=== PATIENT | male | born 1980 | race Caucasian/White ===

== ENCOUNTER 2022-03-29 13:47 | Emergency (ER) | payer MEDICAID ==
[~2022-03-29] VITALS: Ht 157.5 cm; Wt 77.6 kg
[2022-03-29 13:53] VITALS: BP 145/94
--- NOTE | 2022-03-29 14:02 | NUR ---
Patient ambulated with steady gait to bed 3.
[2022-03-29] MEDS ORDERED: GENTAMICIN 120 MG in DEXTROSE 5% 100 ML IV ONE (14:45)
[2022-03-29] MEDS ORDERED: ONDANSETRON 4 MG/2 ML VIAL IVP ONE (14:45)
[2022-03-29] MEDS ORDERED: MORPHINE SULFATE 4 MG/ML SYR IVP ONE (14:45)
--- NOTE | 2022-03-29 15:02 | NUR ---
CALLED [place] [employer], SPOKE TO JUAN FRANCISCO OF THE POLICE STATION, STATED THAT THE REPORT/CASE NUMBER WILL BE DONE WHEN THE POLICE SPEAK TO THE PT, CALL BACK NUMBER [phone].
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
[2022-03-29 15:07] LABS: BASOPHILS # (AUTO) 0.1 K/uL (0.00-0.22); BASOPHILS % (AUTO) 1.1 % (0.0-2.0); EOSINOPHILS # (AUTO) 0.2 K/uL (0-0.4); EOSINOPHILS % (AUTO) 3.1 % (0.0-4.0); HEMATOCRIT 46.1 % (36-52); HEMOGLOBIN 15.6 g/dL (12.0-18.0); LYMPHOCYTES % (AUTO) 15.7 % (20.5-51.1); MEAN CORPUSCULAR HEMOGLOBIN 30 pg (27-31); MEAN CORPUSCULAR HGB CONC 34 g/dL (33-37); MEAN CORPUSCULAR VOLUME 87.7 fL (80-94); MONOCYTES # (AUTO) 0.4 K/uL (0.8-1.0); MONOCYTES % (AUTO) 6.8 % (1.7-9.3); NEUTROPHILS # (AUTO) 4.5 K/uL (1.8-7.7); NEUTROPHILS % (AUTO) 73.3 % (42.2-75.2); PLATELET COUNT (AUTO) 203 K/uL (140-450); RED BLOOD CELL COUNT(AUTO) 5.26 MIL/uL (4.20-6.10); RED CELL DISTRIBUTION WIDTH 13.5 % (11.6-13.7); WHITE BLOOD COUNT (AUTO) 6.2 K/uL (4.8-10.8)
[2022-03-29 15:41] LABS: ALBUMIN 4.4 g/dL (3.4-5.0); CARBON DIOXIDE 24.9 mmol/L (21-32); CREATININE 1.1 mg/dL (0.6-1.3); POTASSIUM 3.9 mmol/L (3.5-5.1); TOTAL BILIRUBIN 0.7 mg/dL (0.0-1.0)
--- NOTE | 2022-03-29 15:49 | NUR ---
[place] [employer] AT BEDSIDE
--- NOTE | 2022-03-29 16:14 | NUR ---
CASE #[id number]. OFFICER GARY LYLE GAVE CARD WITH CASE # TO PT.
[2022-03-29] MEDS ORDERED: OXYC5TAB4 PO (16:32)
[2022-03-29] MEDS ORDERED: IBUP-2213 PO (16:32)
[2022-03-29] MEDS ORDERED: CLIN300C52 PO (16:34)
[2022-03-29] MEDS ORDERED: GENTAMICIN 80 MG/2 ML VIAL ONE (16:41)
[2022-03-29] MEDS ORDERED: GENTAMICIN 80 MG in DEXTROSE 5% 100 ML IV ONE (16:45)
--- NOTE | 2022-03-29 17:17 | NUR ---
[facility] AT BEDSIDE, PT HAD CONCERNS ON POSSIBLE TRANSFER AND STATUS.
--- NOTE | 2022-03-29 18:18 | NUR ---
PT IN BED RESTING HOB ELEVATED. RESP EVEN AND UNLABORED. 8/10 PAIN LEVEL. PENDING TRANSFER TO BE ACCTEPTED FROM [place]. L HAND SWOLLEN. PT UNABLE TO MOVE DIGITS. PT STATES HIS HAND IS NUMB AND FEELS LIKE "PINS AND NEEDLES". FOOD PROVIDED TO PATIENT. SIDE RAIL UPX1. BED AT LOWEST POSITION
[2022-03-29] MEDS ORDERED: MORPHINE SULFATE 2 MG/ML SYR IVP STA (18:36)
--- NOTE | 2022-03-29 19:38 | NUR ---
GAVE REPORT TO KATHLEEN FREY AT [facility]
--- NOTE | 2022-03-29 19:57 | NUR ---
[facility] AT BEDSIDE FOR TRANSPORT
[2022-03-29 19:59] VITALS: BP 118/81
--- NOTE | 2022-03-29 19:59 | NUR ---
Patient to be transferred to [facility]. Is being transferred due to HIGHER LEVEL OF CARE. Receiving facility has accepting physician and available space. ER physician has signed transfer form. Patient or responsible constitution party has agreed to transfer and signed form. Patient belongings inventoried and will be sent with patient. Copy of nursing notes, Physicians Orders and X-rays to be sent with patient. Report called to KATHLEEN FREY at receiving facility. [facility] ambulance service TRANSFERRED PATIENT.
--- NOTE | 2022-03-29 20:19 | NUR ---
The patient's care was reviewed and supervised by Jennifer Jean Baptiste RN.
== END 2022-03-29 19:59 | disposition short-term general hospital (02) ==
LOC: MED 13:47
DX: S61.442A Puncture wound with foreign body of left hand, initial encounter (principal); Z88.0 Allergy status to penicillin; Z79.899 Other long term (current) drug therapy; W34.09XA Accidental discharge from other specified firearms, initial encounter; Y93.89 Activity, other specified; Y92.89 Other specified places as the place of occurrence of the external cause; Y99.8 Other external cause status
CPT/HCPCS: 36415; 73130; 80053; 85025; 85651; 86140; 86886; 86900; 86901; 87040; 90471; 90715; 96365; 96375; 96376; 99285; J1580; J2270; J2405

== ENCOUNTER 2023-04-07 22:30 | Emergency (ER) | payer MEDICAID ==
[~2023-04-07] VITALS: Ht 170.2 cm; Wt 77.1 kg
[~2023-04-07 22:30] MED LIST: CLIN300C52 PO; IBUP-2213 PO; OXYC5TAB4 PO
[2023-04-07 22:40] VITALS: BP 121/80; PULSE 80; RESP 17; TEMP 97.7; O2SAT 97
[2023-04-08] MEDS ORDERED: methocarbamoL 500 MG TAB PO STA (01:17)
[2023-04-08] MEDS ORDERED: KETOROLAC 15 MG/ML VIAL IM ONE (01:20)
[2023-04-08] MEDS ORDERED: ACETAMINOPHEN 325 MG TAB PO ONE (01:20)
[2023-04-08 02:50] LABS: BASOPHILS # (AUTO) 0.1 K/uL (0.00-0.22); BASOPHILS % (AUTO) 1.2 % (0.0-2.0); EOSINOPHILS # (AUTO) 0.4 K/uL (0-0.4); EOSINOPHILS % (AUTO) 5.9 % (0.0-4.0); HEMATOCRIT 45.2 % (36-52); HEMOGLOBIN 15.6 g/dL (12.0-18.0); LYMPHOCYTES # (AUTO) 2.1 K/uL (2.0-11.5); LYMPHOCYTES % (AUTO) 33.6 % (20.5-51.1); MEAN CORPUSCULAR HEMOGLOBIN 30 pg (27-31); MEAN CORPUSCULAR HGB CONC 35 g/dL (33-37); MEAN CORPUSCULAR VOLUME 87.1 fL (80-94); MONOCYTES # (AUTO) 0.5 K/uL (0.8-1.0); MONOCYTES % (AUTO) 8.4 % (1.7-9.3); NEUTROPHILS # (AUTO) 3.1 K/uL (1.8-7.7); NEUTROPHILS % (AUTO) 50.9 % (42.2-75.2); PLATELET COUNT (AUTO) 216 K/uL (140-450); RED BLOOD CELL COUNT(AUTO) 5.19 MIL/uL (4.20-6.10); RED CELL DISTRIBUTION WIDTH 13.4 % (11.6-13.7); WHITE BLOOD COUNT (AUTO) 6.1 K/uL (4.8-10.8)
[2023-04-08 02:57] LABS: CHLORIDE 100 mmol/L (98-107); POTASSIUM 3.9 mmol/L (3.5-5.1); SODIUM SERUM 137 mmol/L (136-145)
[2023-04-08 03:10] LABS: ALANINE AMINOTRANSFERASE 39 U/L (12-78); ALBUMIN 3.9 g/dL (3.4-5.0); ALKALINE PHOSPHATASE 153 U/L (50-136); ANION GAP 13.3 (8-16); ASPARTATE AMINOTRANSFERASE 46 U/L (15-37); CALCIUM 8.2 mg/dL (8.5-10.1); CARBON DIOXIDE 26.6 mmol/L (21-32); CREATININE 1.1 mg/dL (0.6-1.3); GFR ARICAN-AMERICAN 95 mL/min (>90); GFR NON ARICAN-AMERICAN 79 mL/min (>90); GLUCOSE 125 mg/dL (74-106); TOTAL BILIRUBIN 0.6 mg/dL (0.0-1.0); TOTAL PROTEIN, SERUM 7.9 g/dL (6.4-8.2); UREA NITROGEN, BLOOD 22 mg/dL (7-18)
[2023-04-08 05:24] VITALS: O2SAT 98
[2023-04-08 07:31] VITALS: O2SAT 98
[2023-04-08] MEDS ORDERED: IBUP-2213 PO (07:34)
[2023-04-08 08:28] VITALS: BP 98/63; PULSE 63; RESP 15; TEMP 97.5; O2SAT 99
== END 2023-04-08 08:28 | disposition home or self-care (01) ==
LOC: MED 22:30
DX: M54.6 Pain in thoracic spine (principal); R91.8 Other nonspecific abnormal finding of lung field; Z79.899 Other long term (current) drug therapy; Z79.1 Long term (current) use of non-steroidal anti-inflammatories (NSAID); Z79.2 Long term (current) use of antibiotics; Z88.0 Allergy status to penicillin
CPT/HCPCS: 36415; 71046; 71260; 80053; 84484; 85025; 93005; 96372; 99285; J1885; Q0092; Q9967